=== PATIENT | female | born 2000 | race Caucasian/White ===

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

== ENCOUNTER 2022-05-01 19:55 | Emergency (ER) | payer MEDICAID ==
[~2022-05-01] VITALS: Ht 162.6 cm; Wt 101.3 kg
[2022-05-01] MEDS ORDERED: FAMOTIDINE 20 MG TABLET PO ONE (20:30)
[2022-05-01] MEDS ORDERED: DiphenhydrAMINE HCL 25 MG CAPSULE PO ONE (20:30)
[2022-05-01] MEDS ORDERED: DEXAMETHASONE 4 MG TABLET PO ONE (20:30)
[2022-05-01 22:30] VITALS: BP 124/77
== END 2022-05-01 22:57 | disposition home or self-care (01) ==
LOC: EMS 19:57
DX: T78.3XXA Angioneurotic edema, initial encounter (principal); X58.XXXA Exposure to other specified factors, initial encounter; Z87.441 Personal history of nephrotic syndrome
CPT/HCPCS: 99284; J8540; Z7502; Z7610

== ENCOUNTER 2022-07-02 08:29 | Emergency (ER) | payer MEDICAID ==
[~2022-07-02] VITALS: Ht 162.6 cm; Wt 100.0 kg
[2022-07-02 08:32] VITALS: BP 112/69
[2022-07-02] MEDS ORDERED: LORATADINE 10 MG TABLET PO ONE (09:00)
[2022-07-02] MEDS ORDERED: PredniSONE 20 MG TABLET PO ONE (09:00)
[2022-07-02] MEDS ORDERED: DIPH25TA20 PO (09:24)
== END 2022-07-02 09:34 | disposition home or self-care (01) ==
LOC: EMS 08:30
DX: T78.40XA Allergy, unspecified, initial encounter (principal); X58.XXXA Exposure to other specified factors, initial encounter; F10.20 Alcohol dependence, uncomplicated; Z87.440 Personal history of urinary (tract) infections
CPT/HCPCS: 99283; J7512

== ENCOUNTER 2022-11-10 11:25 | Emergency (ER) | payer SELFPAY ==
[~2022-11-10] VITALS: Ht 162.6 cm; Wt 97.7 kg
[~2022-11-10 11:25] MED LIST: DIPH25TA20 PO
[2022-11-10] MEDS ORDERED: DEXAMETHASONE SOD PHOS 4 MG/ML 5 ML VIAL IM ONE (14:30)
[2022-11-10] MEDS ORDERED: IBUPROFEN 600 MG TABLET PO ONE (14:30)
[2022-11-10 15:21] LABS: COVID AG,FIA SOURCE NASOPHARYNGEAL
[2022-11-10 15:30] VITALS: BP 134/62
[2022-11-10 16:07] LABS: RAPID GROUP A STREP NEGATIVE (NEGATIVE)
[2022-11-10 16:16] LABS: INFLUENZA TYPE A NEGATIVE FOR TYPE A (NEGATIVE); INFLUENZA TYPE B NEGATIVE FOR TYPE B (NEGATIVE)
[2022-11-10] MEDS ORDERED: IBUP-1492 PO (16:20)
== END 2022-11-10 16:36 | disposition home or self-care (01) ==
LOC: EMS 11:36
DX: J02.8 Acute pharyngitis due to other specified organisms (principal); R51.9 Headache, unspecified; F17.210 Nicotine dependence, cigarettes, uncomplicated; Z20.822 Contact with and (suspected) exposure to COVID-19
CPT/HCPCS: 99283; 87426; 87430; 87804; 96372; J1100

== ENCOUNTER 2023-09-27 06:44 | Emergency (ER) | payer MEDICAID ==
[~2023-09-27] VITALS: Ht 160 cm; Wt 100.0 kg
[~2023-09-27 06:44] MED LIST changes: -DIPH25TA20 PO; +IBUP-1492 PO
[2023-09-27 08:55] VITALS: BP 108/68; PULSE 85; RESP 16; TEMP 99.2
[2023-09-27] MEDS ORDERED: DIPH25TA51 PO (09:21)
[2023-09-27] MEDS ORDERED: LORA10TA7 PO (09:21)
[2023-09-27] MEDS ORDERED: FAMO20 PO (09:21)
[2023-09-27] MEDS ORDERED: PRED-554 PO (09:21)
== END 2023-09-27 09:36 | disposition home or self-care (01) ==
LOC: EMS 06:45
DX: T78.40XA Allergy, unspecified, initial encounter (principal); F17.210 Nicotine dependence, cigarettes, uncomplicated; X58.XXXA Exposure to other specified factors, initial encounter
CPT/HCPCS: 99283

== ENCOUNTER 2024-06-08 08:49 | Emergency (ER) | payer SELFPAY ==
[~2024-06-08] VITALS: Ht 160 cm; Wt 95.5 kg
[~2024-06-08 08:49] MED LIST changes: +DIPH25TA51 PO; +FAMO20 PO; +LORA10TA7 PO; +PRED-554 PO
[2024-06-08 08:52] VITALS: TEMP 99.8
[2024-06-08 09:42] LABS: COVID AG,FIA SOURCE NASAL SWAB
[2024-06-08 09:57] VITALS: BP 121/76; PULSE 92; RESP 16; O2SAT 99
[2024-06-08 10:02] LABS: INFLUENZA TYPE A NEGATIVE FOR TYPE A (NEGATIVE); INFLUENZA TYPE B NEGATIVE FOR TYPE B (NEGATIVE); SARS-COV2 (COVID) ANTIGEN,FIA Negative (Negative)
[2024-06-08] MEDS ORDERED: AMOX500C2 PO (10:11)
[2024-06-08] MEDS ORDERED: IBUP-1492 PO (10:13)
== END 2024-06-08 11:22 | disposition home or self-care (01) ==
LOC: EMS 08:51
DX: H66.92 Otitis media, unspecified, left ear (principal); Z87.440 Personal history of urinary (tract) infections; Z20.822 Contact with and (suspected) exposure to COVID-19
CPT/HCPCS: 87430; 87804; 99283